=== PATIENT | male | born 1965 | race Caucasian/White ===

== ENCOUNTER 2016-09-13 10:00 | Emergency (ER) | payer OTHER ==
[2016-09-13 10:08] VITALS: TEMP 36.7; Ht 175.3 cm
[2016-09-13] MEDS ORDERED: HYDR25TA4 PO (10:30)
[2016-09-13] MEDS ORDERED: TRAM-10 PO (10:30)
[2016-09-13] MEDS ORDERED: LPD600 PO (10:30)
[2016-09-13] MEDS ORDERED: PROP10TA7 PO (10:30)
[2016-09-13] MEDS ORDERED: MCRK20 PO (10:30)
[2016-09-13] MEDS ORDERED: ASPI81TA28 PO (10:30)
[2016-09-13] MEDS ORDERED: ONDANSETRON INJ 2 MG/ML 2 ML VIAL IV STA (11:03)
[2016-09-13] MEDS ORDERED: HYDROmorphone INJ 1 MG/ML SYR IV STA ×2 (11:03→13:16)
[2016-09-13] MEDS ORDERED: KETOROLAC TROMETHAMINE 30 MG/ML VIAL IV STA (11:03)
[2016-09-13] MEDS ORDERED: DEXAMETHASONE SOD INJ 10 MG/ML VIAL IV ONE (11:15)
--- NOTE | 2016-09-13 11:56 | DIAGNOSTIC IMAGING REPORT ---
LUMBAR SPINE 5 VIEWS CLINICAL HISTORY: Low back pain. FINDINGS: 5 views of the lumbar spine are obtained. No prior studies are available for comparison at the time of dictation. The skeletal structures are well mineralized. There is no radiographic evidence of fracture or malalignment. Vertebral body height and alignment are maintained. Anterior osteophytes are seen throughout. The transverse and spinous processes are intact. There is no evidence of spondylolysis. There is mild degenerative disc space narrowing and endplate sclerosis seen at L1-L2. The remaining intervertebral disc spaces are well-maintained. The visualized bony pelvis appears intact. There is a nonobstructed abdominal bowel gas pattern. A naval piercing is noted. Phleboliths are seen in the pelvis. IMPRESSION: No acute bony abnormality is seen involving the lumbosacral spine. Electronically signed by: Pako Villeda M.D. 09/13/2016 11:55 AM Dictated Date/Time: 09/13/2016 11:53 AM
[2016-09-13 13:31] VITALS: BP 140/70; PULSE 60; O2SAT 93
[2016-09-13] MEDS ORDERED: PRED20TA PO (14:09)
[2016-09-13] MEDS ORDERED: CYCL10TA6 PO (14:09)
[2016-09-13] MEDS ORDERED: OXYC1TAB3 PO (14:09)
--- NOTE | 2016-09-13 14:10 | EMERGENCY ROOM VISIT NOTE ---
ED Visit Note First contact with patient: 10:33 CHIEF COMPLAINT: Low back pain 2 days HISTORY OF PRESENT ILLNESS: Patient is a 51-year-old white male who presents to emergency department today by his for evaluation of acute low back pain that started 2 days ago. Patient reports a remote history of a back injury while lifting about 5 years ago. He did not seek any medical attention after the initial injury. Patient reports intermittent problems with his back since, he reports that it "goes out" roughly 2 times a year, although notes increasing frequency of episodes. 2 days ago, he states that he tried to pull a dresser out of the back of his van when it got stuck. He noted some tightness in his back afterwards, but continued to work. Progressively over the last 2 days, he has noted a dull, deep, aching pain in the midline of his low back that radiates to the right low back. He is fine when he is in one position, including laying or sitting, but will get acute, sharp, stabbing pains with movement, including changing positions or twisting. He reports that his legs have been giving out and he has fallen multiple times in the last 2 days due to pain. He has tried ice, heat, and taking baths for his discomfort. He denies any numbness, tingling or paresthesias in his lower extremities. No bowel or bladder incontinence. There was no direct trauma to the back. He has never sought medical attention for his back other than seeing a chiropractor. He is on tramadol chronically for chronic calf pain. This has been evaluated by his PCP, and the etiology is unclear. He was most recently seen by neurology and MS was excluded. He states that in order to pursue any further workup he will have to complete a course of physical therapy. The tramadol that he has been taking for his legs has done nothing for his back pain. He presently rates his discomfort and 8/10. REVIEW OF SYSTEMS: Review of systems as per HPI. All other systems reviewed were negative. 10 systems reviewed. PMH: Electronic medical records are reviewed and summarized as above/below. See Problem List. SOCIAL HISTORY: Patient lives at home with his . Nonsmoker.. PHYSICAL EXAM: Vital Signs: Reviewed Nurse's notes. CONSTITUTIONAL: Patient is an uncomfortable appearing 51-year-old white male who is awake and alert and laying upright on the gurney in moderate distress due to his back pain. He has significant discomfort with position changes. EYES: Pupils equal, round, reactive to light and accommodation. EOMs intact without nystagmus. Sclera are anicteric. ENT: Tympanic membranes intact, with normal landmarks. External canals are clear. Oral and nasopharynx are clear. Mucous membranes are moist, no lesions , tongue and gums appear normal. NECK: No bruits auscultated. Supple without lymphadenopathy. No thyromegaly. No meningeal signs. Full active range of motion without discomfort. CARDIOVASCULAR: Regular rate and rhythm, with normal S1 and S2, no murmur or gallop or rub is heard. No carotid bruits auscultated. No JVD. Peripheral pulses easily palpable. RESPIRATORY: Breath sounds equal and clear to auscultation without wheezes, rales, or rhonchi heard. Full and equal chest expansion without accessory muscle use or retractions. ABDOMEN: Bowel sounds are present. Abdomen is soft, nontender and nondistended. INTEGUMENTARY: No lesions or rash, normal skin turgor. LYMPH: No lymphadenopathy. SPINE: Examination of the patient's back does not demonstrate any ecchymosis, abrasions or outward signs of trauma. No erythema, increased warmth or induration. Patient has midline discomfort to palpation over the low lumbar spine, in the midline. There is no pain over the SI joint or the sciatic notch. He has increased pain with range of motion including rotation and flexion. EXTREMITIES: Leg lengths are symmetrical. Negative logroll bilaterally. Normal strength including dorsi-flexion and plantar flexion of the great toes and ankles and flexion and extension of the knees. Positive right straight leg raise testing. Achilles and patellar DTR are equal and symmetrical bilaterally. Distal pulses are easily palpable. Sensation light touch is intact over the lower extremities bilaterally. EMERGENCY DEPARTMENT COURSE: The patient was seen and evaluated as above. IV access was obtained. He was medicated with Dilaudid 1 mg IV 2, Decadron 10 mg IV, Toradol 30 mg IV and Zofran 4 mg IV. Urine was dipped and was completely clear. Lumbar spine x-rays were obtained and did not demonstrate any acute bony abnormalities. The patient was reassessed. He reported good improvement in his pain with the IV medications. He did receive a second dose of Dilaudid IV just prior to discharge and rated his pain a 0/10. X-ray findings were reviewed with the patient. He has a long-standing history of problems with his back without ever having any formal medical evaluation. Interestingly enough, he also reports a history of some chronic calf pain and spasm and has been evaluated by neurology. Apparently MS has been excluded. The patient appears to have an exacerbation of his chronic underlying back condition. His physical exam findings are not consistent with acute cord compression or cauda equina syndrome. I do not suspect epidural abscess or hematoma. Supportive care measures were discussed. Patient will be placed on a short course of oral steroids, encouraged to use muscle relaxers and oxycodone for pain. He was advised to follow closely with his primary care provider for further care and management as he may require an MRI as an outpatient. The patient expressed understanding of this and was in agreement. Certainly he was educated on the worrisome signs or symptoms for which she should return to the emergency department. He was discharged to home in the care of his in good condition. LUMBAR SPINE 5 VIEWS CLINICAL HISTORY: Low back pain. FINDINGS: 5 views of the lumbar spine are obtained. No prior studies are available for comparison at the time of dictation. The skeletal structures are well mineralized. There is no radiographic evidence of fracture or malalignment. Vertebral body height and alignment are maintained. Anterior osteophytes are seen throughout. The transverse and spinous processes are intact. There is no evidence of spondylolysis. There is mild degenerative disc space narrowing and endplate sclerosis seen at L1-L2. The remaining intervertebral disc spaces are well-maintained. The visualized bony pelvis appears intact. There is a nonobstructed abdominal bowel gas pattern. A naval piercing is noted. Phleboliths are seen in the pelvis. IMPRESSION: No acute bony abnormality is seen involving the lumbosacral spine. Problem List Medical Problems: (1) Chronic pain syndrome Status: Chronic (2) History of kidney stones Status: Chronic (3) Hypertension Status: Chronic Current/Historical Medications Scheduled Aspirin (Aspirin Ec), 81 MG PO DAILY Gemfibrozil (Gemfibrozil), 1 TAB PO BID Hydrochlorothiazide (Hctz), 25 MG PO DAILY Potassium Chloride (Klor-Con M20), Unknown Dose PO BID Prednisone (Prednisone), 0 PO DAILY Propranolol (Inderal), Unknown Dose PO BID Scheduled PRN Cyclobenzaprine Hcl (Flexeril), 10 MG PO TID PRN for Muscle Spasms Oxycodone Immediate Rel Tab (Roxicodone Ir), 1-2 TAB PO Q4H PRN for Severe Pain Tramadol (Ultram), 100 MG PO Q6 PRN for Pain Allergies Coded Allergies: Lisinopril (Unverified Allergy, Intermediate, cough, 09/13/16) Vital Signs Date Time Temp Pulse Resp B/P Pulse Ox O2 Delivery O2 Flow Rate FiO2 09/13/16 13:31 60 16 140/70 93 Room Air 09/13/16 11:51 63 18 134/79 99 Room Air 09/13/16 10:08 36.7 61 20 156/97 96 Room Air Medications Administered Medications (Trade) Dose Ordered Sig/Derek Route Start Time Stop Time Status Last Admin Dose Admin Ketorolac Tromethamine (Toradol Inj) 30 mg NOW STAT IV 09/13/16 11:03 09/13/16 11:05 DC 09/13/16 11:48 30 MG Dexamethasone Sodium Phosphate (Decadron Inj) 10 mg NOW ONCE IV 09/13/16 11:15 09/13/16 11:16 DC 09/13/16 11:47 10 MG Hydromorphone HCl (Dilaudid Inj) 1 mg NOW STAT IV 09/13/16 11:03 09/13/16 11:05 DC 09/13/16 11:47 1 MG Ondansetron HCl (Zofran Inj) 4 mg NOW STAT IV 09/13/16 11:03 09/13/16 11:05 DC 09/13/16 11:46 4 MG Hydromorphone HCl (Dilaudid Inj) 1 mg NOW STAT IV 09/13/16 13:16 09/13/16 13:17 DC 09/13/16 13:27 1 MG Departure Information Impression Primary Impression: Low back pain Prescriptions Oxycodone Immediate Rel Tab (ROXICODONE IR) 5 Mg Tab 1-2 TAB PO Q4H Y for Severe Pain, #20 TAB For Initial Treatment Prov: Cassandra Tamez PA 09/13/16 Cyclobenzaprine Hcl (FLEXERIL) 10 Mg Tab 10 MG PO TID Y for Muscle Spasms, #30 TAB Prov: Cassandra Tamez PA 09/13/16 Prednisone (Prednisone) 20 Mg Tab 0 PO DAILY, #18 TAB 3 DAILY FOR 3 DAYS, THEN 2 DAILY FOR 3 DAYS, THEN 1 DAILY FOR 3 DAYS. Prov: Cassandra Tamez PA 09/13/16 Referrals Radha Foster MD (PCP) Patient Instructions My [facility] Additional Instructions DO NOT drive, drink alcohol, operate machinery, or perform dangerous activities today. You were given medications in the ER that can affect your ability to safely function or operate a vehicle. Prednisone 20mg: Once daily as prescribed until the prescription is finished. It is best to take this earlier in the day as some patients note occasional difficulty falling asleep when taken in the late evening. Oxycodone (OxyIR) 5mg: Take 1-2 pills every four hours for breakthrough pain. Avoid alcohol, operating machinery or dangerous equipment, working on ladders or roofs, DRIVING, or situations where being under the influence may be dangerous. It is recommended to use an [id number] stool softener such as Colace, 100mg twice daily while taking this medication to avoid constipation. Cyclobenzaprine (Flexeril) 10 mg: Take 1 pills 3 times daily as needed for muscle spasms.. Avoid alcohol, operating machinery or dangerous equipment, working on ladders or roofs, DRIVING, or situations where being under the influence may be dangerous. Ibuprofen(Motrin, Advil) may be used for fever or pain. Use 600mg every six hours as needed. Take with food. Avoid using more than 2400mg in a 24 hour period. Do not use 2400mg per day for more than three consecutive days without physician direction. Prolonged inappropriate use can lead to stomach upset or ulcers. This medication can be taken if you need to drive, work, or perform activities which may be dangerous when taking narcotic pain medication. (AND/OR) Acetaminophen(Tylenol) may be used for fever or pain. Use 1000mg every six hours as needed. Avoid using more than 3000mg in a 24 hour period. This medication can be taken if you need to drive, work, or perform activities which may be dangerous when taking narcotic pain medication. Rest and avoid heavy lifting until your symptoms resolve and then gradually return to full activity. A good rule of thumb is if it hurts your back to perform a certain activity, then it should be avoided until you are healthy again. A heating pad, warm compresses, or a hot shower may help with tight muscles and can be done several times a day as needed. Continue current medications. Return to the ER immediately for any numbness, tingling, severe pain, loss of control of your bowels or bladder, inability to walk, or as needed. Follow up with your primary care physician within 3-5 days for a recheck of your current condition. Problem Qualifiers Primary Impression: Low back pain Chronicity: acute Back pain laterality: midline Sciatica presence: without sciatica Qualified Codes: M54.5 - Low back pain
== END 2016-09-13 14:25 | disposition home or self-care (01) ==
LOC: C.EDB 10:03 → C.EDC 14:25
DX: M54.5 Low back pain (principal); G89.4 Chronic pain syndrome; I10 Essential (primary) hypertension; Z98.890 Other specified postprocedural states; Z79.82 Long term (current) use of aspirin; Z79.899 Other long term (current) drug therapy; Z88.8 Allergy status to other drugs, medicaments and biological substances

== ENCOUNTER → 2016-10-15 | Outpatient (CLI) | payer OTHER ==
[~2016-10-15] MED LIST: ASPI81TA28 PO; HYDR25TA4 PO; LPD600 PO; MCRK20 PO; OXYC1TAB3 PO; PRED20TA PO; PROP10TA7 PO; TRAM-10 PO
--- NOTE | 2016-10-15 10:30 | DIAGNOSTIC IMAGING REPORT ---
MRI LUMBAR SPINE W/O CONTRAST CLINICAL HISTORY: Back pain with right lower extremity radiculopathy and leg weakness. TECHNIQUE: Sagittal and axial T1, T2 and STIR images were obtained. COMPARISON STUDY: Conventional radiographic study dated 09/13/2016 OBSERVATIONS: The vertebral bodies and posterior elements appear intact. There is no abnormal bony signal present to suggest a marrow replacement process. L1-2: There is a mild circumferential disc bulge. There is no significant spinal or foraminal stenosis L2-3: No disc protrusions or extrusions. No evidence of spinal canal or neural foraminal compromise. L3-4: There is a mild circumferential disc bulge. There is no significant spinal or foraminal stenosis. L4-5: There is a small central disc protrusion with secondary deformity of the anterior thecal sac. There is no significant foraminal narrowing L5-S1: No disc protrusions or extrusions. No evidence of spinal canal or neural foraminal compromise. The conus medullaris and cauda equina appear normal. IMPRESSION: Small central disc protrusion at the L4-5 level with mild secondary deformity of the thecal sac Electronically signed by: Hayden Cadena M.D. 10/15/2016 10:28 AM Dictated Date/Time: 10/15/2016 10:25 AM
== END | disposition home or self-care (01) ==
LOC: C.MRI 09:34
PROVIDERS: ATTEND Family Medicine
DX: M54.9 Dorsalgia, unspecified (principal); R29.898 Other symptoms and signs involving the musculoskeletal system